=== PATIENT | male | born 1955 | race Caucasian/White ===

== ENCOUNTER 2024-04-10 15:55 | Inpatient (IN) | payer OTHER ==
[~2024-04-10] VITALS: Ht 167.6 cm; Wt 89.8 kg
[2024-04-10 17:32] LABS: BASOPHILS % (AUTO) 0.4 % (0.0-2.0); EOSINOPHILS # (AUTO) 0.1 K/uL (0.0-0.7); EOSINOPHILS % (AUTO) 0.9 % (0.0-6.0); HEMATOCRIT 40 % (39-51); HEMOGLOBIN 13.2 g/dL (13.5-17.5); LYMPHOCYTES # (AUTO) 0.8 K/uL (0.8-4.8); LYMPHOCYTES % (AUTO) 10.7 % (20.0-44.0); MEAN CORPUSCULAR HEMOGLOBIN 31 PG (26.0-33.0); MEAN CORPUSCULAR HGB CONC 33 g/dl (31.0-36.0); MEAN CORPUSCULAR VOLUME 94 fL (80-96); MONOCYTES # (AUTO) 0.4 K/uL (0.1-1.30); MONOCYTES % (AUTO) 5.4 % (2.0-12.0); NEUTROPHILS # (AUTO) 6.2 K/uL (1.8-8.9); NEUTROPHILS % (AUTO) 82.6 % (43.0-81.0); PLATELET COUNT (AUTO) 142 K/uL (150-450); RED BLOOD CELL COUNT(AUTO) 4.23 MIL/uL (4.5-6.0); RED CELL DISTRIBUTION WIDTH 14.1 % (11.5-15.0); WHITE BLOOD COUNT (AUTO) 7.4 K/uL (4.3-11.0)
[2024-04-10 17:41] LABS: CALCIUM, SERUM 8.8 mg/dL (8.5-10.1); CARBON DIOXIDE 30 mmol/L (21-32); CHLORIDE 106 mmol/L (98-107); CREATININE 1.5 mg/dL (0.6-1.3); GLUCOSE 119 mg/dL (74-106); POTASSIUM 3.9 mmol/L (3.5-5.1); SODIUM SERUM 141 mmol/L (136-145); UREA NITROGEN, BLOOD 24 mg/dL (7-18)
[2024-04-10 17:58] LABS: ALANINE AMINOTRANSFERASE 25 U/L (12-78); ALBUMIN 3.2 g/dL (3.4-5.0); ALKALINE PHOSPHATASE 73 U/L (46-116); ASPARTATE AMINOTRANSFERASE 22 U/L (15-37); BILIRUBIN,DIRECT 0.2 mg/dL (0.0-0.2); BILIRUBIN,TOTAL 0.7 mg/dL (0.2-1.0); TOTAL PROTEIN, SERUM 6.6 g/dL (6.4-8.2)
[2024-04-10 18:01] LABS: INR 1.05 (0.91-1.10); PARTIAL THROMBOPLASTIN TIME 27.1 SEC (24.3-34.3); PROTHROMBIN TIME 10.8 SECS (9.2-11.1)
[2024-04-10] MEDS: VANCOMYCIN 1 GM in IV D5W 250 ML IV ONE (18:23)
[2024-04-10] MEDS: PIPERACILLIN /TAZOBACTAM 3.375 G in IV D5W 50 ML IV ONE (18:23)
[2024-04-10] MEDS: IV NS 0.9% 1,000 ML BAG IV ONE (18:24)
[2024-04-10] MEDS ORDERED: BISO5TAB20 PO (20:18)
[2024-04-10] MEDS ORDERED: TAMS-12 PO (20:19)
[2024-04-10] MEDS ORDERED: RAMI2.5C55 PO (20:20)
[2024-04-10] MEDS ORDERED: MAG HYDROX/AL HYDROX/SIMETH 30 ML UDC PO PRN (20:30)
[2024-04-10] MEDS ORDERED: ONDANSETRON HCL/PF 4 MG/2 ML VIAL IVP PRN (20:30)
[2024-04-10] MEDS ORDERED: MAGNESIUM HYDROXIDE 30 ML UDC PO PRN (20:30)
[2024-04-10] MEDS ORDERED: ACETAMINOPHEN 325 MG TABLET PO PRN (20:30)
[2024-04-10] MEDS ORDERED: FLEC100T2 PO (20:39)
[2024-04-10] MEDS ORDERED: ENOXAPARIN SODIUM 40 MG/0.4 ML DISP.SYRIN SQ SCH (21:00)
[2024-04-10] MEDS ORDERED: PIPERACILLIN /TAZOBACTAM 3.375 G in IV D5W 100 ML IV SCH (22:00)
[2024-04-11] MEDS ORDERED: PIPERACILLIN /TAZOBACTAM 3.375 G in IV D5W 50 ML IV SCH (01:30)
[2024-04-11] MEDS: IV 1/2NS 1000 ML 1,000 ML IV SCH (02:05)
[2024-04-11 02:12] VITALS: BP 129/64; TEMP 99; O2SAT 96
[2024-04-11] MEDS: VANCOMYCIN 500 MG in IV D5W 100 ML IV ONE (03:02)
[2024-04-11] MEDS: PIPERACILLIN /TAZOBACTAM 3.375 G in IV D5W 100 ML IV SCH (03:04)
[2024-04-11] MEDS ORDERED: VANCOMYCIN 500 MG in IV D5W 100 ML IV ONE (03:30)
[2024-04-11] MEDS: ENOXAPARIN SODIUM 40 MG/0.4 ML DISP.SYRIN SQ SCH (03:31)
[2024-04-11 03:53] VITALS: BP 115/68; TEMP 98.6; O2SAT 96
[2024-04-11 07:14] LABS: BASOPHILS % (AUTO) 0.3 % (0.0-2.0); EOSINOPHILS # (AUTO) 0.1 K/uL (0.0-0.7); EOSINOPHILS % (AUTO) 2.4 % (0.0-6.0); HEMATOCRIT 34 % (39-51); HEMOGLOBIN 11.7 g/dL (13.5-17.5); LYMPHOCYTES % (AUTO) 16.8 % (20.0-44.0); MEAN CORPUSCULAR HEMOGLOBIN 32 PG (26.0-33.0); MEAN CORPUSCULAR HGB CONC 35 g/dl (31.0-36.0); MEAN CORPUSCULAR VOLUME 93 fL (80-96); MONOCYTES # (AUTO) 0.4 K/uL (0.1-1.30); MONOCYTES % (AUTO) 6.7 % (2.0-12.0); NEUTROPHILS # (AUTO) 4.2 K/uL (1.8-8.9); NEUTROPHILS % (AUTO) 73.8 % (43.0-81.0); PLATELET COUNT (AUTO) 122 K/uL (150-450); RED BLOOD CELL COUNT(AUTO) 3.67 MIL/uL (4.5-6.0); RED CELL DISTRIBUTION WIDTH 13.8 % (11.5-15.0); WHITE BLOOD COUNT (AUTO) 5.7 K/uL (4.3-11.0)
[2024-04-11 07:27] LABS: CALCIUM, SERUM 7.8 mg/dL (8.5-10.1); CREATININE 1.2 mg/dL (0.6-1.3); MAGNESIUM 1.9 mg/dL (1.8-2.4); PHOSPHORUS 2.1 mg/dL (2.5-4.9); POTASSIUM 3.5 mmol/L (3.5-5.1)
[2024-04-11 07:33] LABS: THYROID STIMULATING HORMONE 3.13 uIU/mL (0.358-3.74)
[2024-04-11 08:12] VITALS: BP 112/52; TEMP 98.2; O2SAT 98
[2024-04-11] MEDS: PANTOPRAZOLE 40 MG VIAL IV SCH (08:15)
[2024-04-11] MEDS: ATENOLOL 25 MG TABLET PO SCH (08:16)
[2024-04-11] MEDS: FLECAINIDE ACETATE (100 MG) 100 MG TABLET PO SCH (08:16)
[2024-04-11] MEDS ORDERED: TAMSULOSIN 0.4 MG PO SCH (09:00)
[2024-04-11] MEDS ORDERED: FLECAINIDE 50 MG PO SCH (09:00)
[2024-04-11] MEDS ORDERED: BISOPROLOL PO SCH (09:00)
[2024-04-11] MEDS ORDERED: IV 1/2NS 1000 ML 1,000 ML IV PRN (10:10)
[2024-04-11] MEDS: VANCOMYCIN 750 MG in IV D5W 250 ML IV SCH (15:00)
[2024-04-11] MEDS: K PHOS NEUTRAL 250 MG TABLET PO ONE (15:46)
[2024-04-11 17:00] VITALS: BP 130/60; TEMP 98; O2SAT 99
[2024-04-11 17:03] LABS: CREATININE, URINE 76.3 MG/DL (30.0-125.0); URINE TOTAL PROTEIN 17.5 mg/dL (0-11.9)
[2024-04-11 17:06] LABS: APPEARANCE,URINE CLEAR (CLEAR); BILIRUBIN,URINE NEGATIVE (NEGATIVE); BLOOD, URINE 2+ Ery/uL (NEGATIVE); COLOR,URINE YELLOW (YELLOW); KETONES,URINE NEGATIVE (NEGATIVE); LEUKOCYTE ESTERASE ,URINE NEGATIVE (NEGATIVE); NITRITE, URINE NEGATIVE (NEGATIVE); PROTEIN,URINE NEGATIVE (NEGATIVE); UGLUCOSE NEGATIVE (NEGATIVE)
[2024-04-11 17:34] LABS: ADD URINE CULTURE NO; BACTERIA,URINE Rare /HPF (None Seen); SQUAMOUS EPITHELIAL CELL,UR Rare /HPF (None Seen); WBC,URINE 0-2 /HPF (0-3)
[2024-04-11 17:35] LABS: MUCUS,URINE Rare /LPF (None Seen)
[2024-04-11 17:38] LABS: RBC,URINE 0-2 /HPF (0-2)
[2024-04-11 17:39] LABS: URIC ACID CRYSTALS,URINE Many /HPF (None Seen)
[2024-04-11 20:00] VITALS: BP_SYST 133; BP_SYST 139; BP_DIAS 77; TEMP 98.2; TEMP 99; O2SAT 97
[2024-04-11 20:25] LABS: EOSINOPHIL,URINE None Seen
[2024-04-11] MEDS ORDERED: VANCOMYCIN HCL 1.25 GM in IV D5W 250 ML IV SCH (21:00)
[2024-04-11] MEDS: TAMSULOSIN 0.4 MG CAP.SR.24H PO SCH (21:02)
[2024-04-12] VITALS: BP 119/86; TEMP 98.1; TEMP 98.7; O2SAT 98
[2024-04-12 04:00] VITALS: BP 116/65; TEMP 98.1; O2SAT 97
[2024-04-12 07:00] VITALS: BP 137/79; TEMP 98.1; O2SAT 97
[2024-04-12 08:13] LABS: CALCIUM, SERUM 8.4 mg/dL (8.5-10.1); CREATININE 1.1 mg/dL (0.6-1.3); PHOSPHORUS 2.6 mg/dL (2.5-4.9)
[2024-04-12] MEDS: LISINOPRIL (10MG) 10 MG TABLET PO SCH (08:32)
[2024-04-12] MEDS ORDERED: CLIN300C12 PO (10:41)
[2024-04-12] MEDS ORDERED: ACID1TAB12 PO (10:41)
[2024-04-12 13:30] VITALS: BP 132/71; TEMP 98.1; O2SAT 94
[2024-04-12 16:00] VITALS: BP 118/73; TEMP 98; O2SAT 95
[2024-04-13] MEDS ORDERED: PANTOPRAZOLE 40 MG TABLET.DR PO SCH (09:00)
== END 2024-04-12 18:00 | disposition home or self-care (01) | DRG 871 ==
LOC: ER 15:59 → TELE 04-11 00:49
PROVIDERS: ATTEND Nurse Practitioner Acute Care
DX: A41.9 Sepsis, unspecified organism (principal); N17.0 Acute kidney failure with tubular necrosis; L03.116 Cellulitis of left lower limb; I10 Essential (primary) hypertension; N40.0 Benign prostatic hyperplasia without lower urinary tract symptoms; M89.8X9 Other specified disorders of bone, unspecified site; D64.9 Anemia, unspecified; Z86.79 Personal history of other diseases of the circulatory system; R79.89 Other specified abnormal findings of blood chemistry
CPT/HCPCS: 36415; 71045-TC; 73590-TC; 80048-TC; 80061-TC; 80076-TC; 80202-TC; 81001; 82570-TC; 83605-TC; 83735-TC; 84100-TC; 84300-TC; 84443-TC; 85025-TC; 85730-TC; 87040-TC; 93307-TC; A4223; G0378; J1650; J2470; J2543; J3370; J3371; J3490; J7030; J7050; J7060